=== PATIENT | female | born 1985 | race Caucasian/White ===

== ENCOUNTER 2022-04-04 19:45 | Outpatient (CLI) | payer OTHER ==
[2022-04-05 00:21] LABS: CHLAMYDIA TRACHOMATIS DNA NEGATIVE (NEGATIVE); NEISSERIA GONORRHOEAE DNA NEGATIVE (NEGATIVE); TRICHOMONAS VAGINALIS DNA NEGATIVE (NEGATIVE)
[2022-04-06 10:07] LABS: HCV AB 0.2 s/co ratio (0.0-0.9)
[2022-04-06 11:07] LABS: RPR Non Reactive (Non Reactive)
[2022-04-07 00:07] LABS: HIV SCREEN 4TH GENERATION Non Reactive (Non Reactive)
== END 2022-04-04 19:46 | disposition home or self-care (01) ==
LOC: LAB 19:45
PROVIDERS: ATTEND Internal Medicine
DX: Z11.3 Encounter for screening for infections with a predominantly sexual mode of transmission (principal)
CPT/HCPCS: 86592; 86803; 87389; 87491; 87591; 87661

== ENCOUNTER 2022-08-12 22:43 | Emergency (ER) | payer OTHER ==
[2022-08-12 23:16] LABS: BASOPHILS % (AUTO) 0.3 %; EOSINOPHILS # (AUTO) 0.1 10^3/uL (0.0-0.7); EOSINOPHILS % (AUTO) 1.7 %; HCT - HEMATOCRIT 38.3 % (37.0-47.0); HGB - HEMOGLOBIN 12.4 g/dL (12.0-16.0); LYMPHOCYTES # (AUTO) 2.2 10^3/uL (1.5-3.5); LYMPHOCYTES % (AUTO) 32.1 %; MEAN CORPUSCULAR HEMOGLOBIN 31.1 pg (27.0-31.0); MEAN CORPUSCULAR HGB CONC 32.4 g/dL (32.0-36.0); MEAN PLATELET VOLUME 9.4 fL (7.9-10.8); MONOCYTES # (AUTO) 0.5 10^3/uL (0.0-1.0); MONOCYTES % (AUTO) 6.7 %; NEUTROPHILS # (AUTO) 4.1 10^3/uL (1.5-6.6); NEUTROPHILS % (AUTO) 59.1 %; PLT - PLATELET COUNT 233 10^3/uL (130-450); RED BLOOD COUNT 3.99 10^6/uL (4.20-5.40); RED CELL DISTRIBUTION WIDTH 12.1 % (12.0-15.0); WHITE BLOOD COUNT 6.9 x10^3/uL (4.8-10.8)
[2022-08-12 23:24] LABS: CALCIUM 9.4 mg/dL (8.5-10.3); CREATININE 0.7 mg/dL (0.4-1.0); POTASSIUM 4.5 mmol/L (3.5-5.0)
--- NOTE | 2022-08-12 23:28 | ED Physician Documentation ---
PD HPI LOWER EXT INJURY - Stated complaint Stated Complaint: LT KNEE PAIN - Chief complaint Chief Complaint: Trauma Ext - History obtained from History obtained from: Patient - Additional information Additional information: Patient is a 37-year-old female presenting for evaluation of left lower extremity injury that occurred around 6 PM. 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 He then tried to help catch her from falling And she reports bending her left knee awkwardly as he was trying to catch her from falling.Patient reports having difficulty ambulating on the left leg since the accident. She attempted to go to the walk-in clinic around 630 but they were no longer accepting any patients. She then went home. Due to persistent pain she spoke to a friend of hers who recently completed his EMT certification.He recommended that she come to the emergency department for evaluation after patient reported that the leg felt cooler and numb. Patient denies use of blood thinners. She denies pain elsewhere. Patient reports being 5 weeks postop from liposuction. Review of Systems Constitutional: denies: Fever Cardiac: denies: Chest pain / pressure Respiratory: denies: Dyspnea GI: denies: Abdominal Pain : denies: Dysuria Musculoskeletal: reports: Extremity pain. 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, Other HEENT: Tonsil/Adenoidectomy, Other - Present Medications Home Medications: Ambulatory Orders Medication Instructions Recorded Confirmed Dextroamphetamine/Amphetamine 30 cap PO BID 08/12/22 08/12/22 [Adderall Xr 30 mg Capsule] Oxycodone HCl/Acetaminophen 1 each PO Q6H PRN #10 tablet 08/13/22 [Percocet 5-325 mg Tablet] - Allergies Allergies/Adverse Reactions: Allergies Allergy/AdvReac Type Severity Reaction Status Date / Time Pertussis Vaccines Allergy Anaphylaxis Verified 08/12/22 22:55 Sulfa (Sulfonamide Allergy Rash Verified 08/12/22 22:55 Antibiotics) - Social History Does the pt smoke?: No Smoking Status: Never smoker Does the pt drink ETOH?: Yes - Immunizations Immunizations are current?: Yes - POLST Patient has POLST: No PD ED PE NORMAL - General General: Alert and oriented X 3, No acute distress, Well developed/nourished - HEENT HEENT: Atraumatic - Neck Neck: Supple, no meningeal sign - Cardiac Cardiac: RRR - Respiratory Respiratory: No respiratory distress - Extremities Extremities: No deformity, No edema, No calf tenderness / cord, Other (Palpable popliteal/PT/DP pulses in L leg. Tenderness from femur to foot. Decreased ROM at L knee and L ankle due to pain.). No: Normal ROM s pain (Pain with range of motion of left knee, able to fully extend, Pain with knee flexion) Results - Vitals Vitals: Vital Signs - 24 hr 08/12/22 08/12/22 08/12/22 22:50 23:20 23:37 Temperature 36.8 C Heart Rate 89 81 80 Respiratory 16 14 14 Rate Blood Pressure 124/81 H 109/83 H 118/83 H O2 Saturation 98 97 99 08/13/22 08/13/22 00:49 02:00 Temperature Heart Rate 71 61 Respiratory 16 16 Rate Blood Pressure 109/70 111/67 O2 Saturation 96 96 Oxygen O2 Source Room air - Labs Labs: Laboratory Tests 08/12/22 08/12/22 23:12 23:12 WBC 6.9 RBC 3.99 L Hgb 12.4 Hct 38.3 MCV 96.0 MCH 31.1 H MCHC 32.4 RDW 12.1 Plt Count 233 MPV 9.4 Neut # (Auto) 4.1 Lymph # (Auto) 2.2 Rogers # (Auto) 0.5 Eos # (Auto) 0.1 Baso # (Auto) 0.0 Absolute Nucleated RBC 0.00 Nucleated RBC % 0.0 Sodium 138 Potassium 4.5 Chloride 106 Carbon Dioxide 23 Anion Gap 9.0 BUN 17 Creatinine 0.7 Estimated GFR (MDRD) 95 Glucose 102 H Calcium 9.4 PD Medical Decision Making - ED course Complexity details: reviewed results, re-evaluated patient, d/w patient ED course: Patient presenting for evaluation of left leg injury incurred while doing taekwondo.Patient initially presented with numbness and reported coolness to the leg. I am easily able to palpate femoral, popliteal, DP and PT pulses b/l. Extremities appear well-perfused. Her history does not suggest a tibiofemoral dislocation.Compartments of extremity are soft.Patient reported pain from thigh down to foot so x-rays of entire leg were obtained. I also reviewed these x- rays and see no fracture or dislocation. Patient initially declined any pain medication but at discharge agreed To pain medication.Patient was placed into a knee immobilizer and given crutches. She was instructed on need for close follow-up with her primary care doctor. She is advised on concerning symptoms to return for. Departure - Departure Disposition: 01 Home, Self Care Clinical Impression: Injury of left knee Qualifiers: Encounter type: initial encounter Qualified Code(s): S89.92XA - Unspecified injury of left lower leg, initial encounter Condition: Stable Instructions: ED Knee Pain [facility] Prescriptions: Oxycodone HCl/Acetaminophen [Percocet 5-325 mg Tablet] 1 each PO Q6H PRN #10 tablet PRN Reason: pain Comments: You were evaluated after an injury to your left leg. Your x-rays do not show a broken or out of place bone.We have applied an immobilizer and placed you on crutches. I will also send a small amount of pain medication to [facility] in [place]. I would recommend staying off the affected leg until you are feeling better. Please make sure to have close follow-up with your primary care doctor. I am prescribing a short course of narcotic pain medication for you. These are potentially dangerous and addictive medications that should be used carefully. These medications may constipate you. Take an vjkz-ltk-ztyprad stool softener (docusate) twice daily with plenty of water while taking these medications. If you go 24 hours without a bowel movement, take ivbj-cok-dnzlvvw miralax, per package instructions. Do not drink or drive while taking these medications. If you received narcotic or sedating medications while in the emergency department, do not drive for 24 hours. Store this medication in a safe, secure place and out of reach of children. It is a violation of federal law to give or sell this medication to another person or to use in a manner other than prescribed. The ED will not refill narcotic prescriptions, including prescriptions lost or stolen. To dispose of unwanted medications: 1. [facility] at [address] in [place] has a medication drop box. They accept prescription medications (in pill form) Thursday through Thursday 9:00 a.m. to 5:00 p.m. 2. [facility] accepts prescription medications (in pill form only) for disposal year round. Call for more information. 3. Contact the [facility] for the next [facility] sponsored prescription drug collection event. , [phone], or [phone]; Note that many narcotic pain relievers also contain Tylenol/acetaminophen. Please ensure that your total dose of acetaminophen from all sources does not e xceed 3 g (3000 mg) per day. Forms: Activity restrictions Discharge Date/Time: 08/13/22 02:29
[2022-08-13] MEDS ORDERED: ACETAMINOPHEN 325 MG TABLET PO STA (00:52)
[2022-08-13 02:01] VITALS: BP 111/67
--- NOTE | 2022-08-13 02:09 | XRAY Report ---
PROCEDURE: Ankle 3 View LT INDICATIONS: injury during tae nuha do;pain to whole leg TECHNIQUE: 3 views of the ankle were acquired. COMPARISON: Concurrent study of the lower leg FINDINGS: Bones: Evaluation slightly limited due to positioning. No definite fractures or dislocations. Ankle mortise is normally aligned. No suspicious bony lesions. Soft tissues: No tibiotalar joint effusion. Achilles tendon appears normal. IMPRESSION: 1. Slightly limited study demonstrates no definite fracture or dislocation. Reviewed by: Hayder Vaughn MD on 08/13/2022 2:08 AM PST Approved by: Hayder Vaughn MD on 08/13/2022 2:08 AM PST Station ID: [id number]
--- NOTE | 2022-08-13 02:10 | XRAY Report ---
PROCEDURE: Foot 3 View LT INDICATIONS: injury during tae nuha do;pain to whole leg TECHNIQUE: 3 views of the foot were acquired. COMPARISON: Concurrent study of the left ankle. FINDINGS: Bones: No fractures or dislocations. No suspicious bony lesions. Soft tissues: No tibiotalar joint effusion. Achilles tendon appears normal. IMPRESSION: 1. No fracture or dislocation. Reviewed by: Hayder Vaughn MD on 08/13/2022 2:09 AM [facility] Approved by: Hayder Vaughn MD on 08/13/2022 2:09 AM PST Station ID: [id number]
--- NOTE | 2022-08-13 02:10 | XRAY Report ---
PROCEDURE: Femur 2V LT INDICATIONS: injury during tae nuha do;pain to whole leg TECHNIQUE: 4 views of the femur were acquired. COMPARISON: None. FINDINGS: Bones: No fractures or dislocations. No suspicious bony lesions. Soft tissues: No suspicious soft tissue calcifications or masses. IMPRESSION: 1. No fracture or dislocation. Reviewed by: Hayder Vaughn MD on 08/13/2022 2:08 AM [facility] Approved by: Hayder Vaughn MD on 08/13/2022 2:08 AM [facility] Station ID: [id number]
--- NOTE | 2022-08-13 02:11 | XRAY Report ---
PROCEDURE: Knee 3 View LT INDICATIONS: injury during tae nuha do;pain to whole leg TECHNIQUE: 3 views of the left knee were acquired. COMPARISON: Concurrent studies of the femur and tibia/fibula. FINDINGS: Bones: No fractures or dislocations. No suspicious bony lesions. Soft tissues: No joint effusion. No suspicious soft tissue calcifications. IMPRESSION: 1. No fracture or dislocation. Reviewed by: Hayder Vaughn MD on 08/13/2022 2:10 AM PST Approved by: Hayder Vaughn MD on 08/13/2022 2:10 AM PST Station ID: [id number]
--- NOTE | 2022-08-13 02:12 | XRAY Report ---
PROCEDURE: Tib/Fib LT INDICATIONS: injury during tae nuha do;pain to whole leg TECHNIQUE: 2 views of the tibia and fibula were acquired. COMPARISON: Concurrent studies of the ankle and knee. FINDINGS: Bones: No fractures or dislocations. No suspicious bony lesions. Soft tissues: No suspicious soft tissue calcifications or masses. IMPRESSION: 1. No fracture or dislocation. Reviewed by: Hayder Vaughn MD on 08/13/2022 2:10 AM PST Approved by: Hayder Vaughn MD on 08/13/2022 2:10 AM PST Station ID: [id number]
[2022-08-13] MEDS ORDERED: oxyCODONE/ACET 5/325 Prepack 4 PO STA (02:14)
== END 2022-08-13 02:29 | disposition home or self-care (01) ==
LOC: ED 22:43
DX: S89.92XA Unspecified injury of left lower leg, initial encounter (principal); W50.0XXA Accidental hit or strike by another person, initial encounter; Y93.75 Activity, martial arts; Y92.89 Other specified places as the place of occurrence of the external cause
CPT/HCPCS: 36415; 73552; 73562; 73590; 73610; 73630; 80048; 85025; 99283; 99284; A9270; 87633

== ENCOUNTER 2022-09-01 08:00 | Outpatient (CLI) | payer OTHER ==
[2022-09-01 21:56] LABS: BACTERIAL VAGINOSIS DNA POSITIVE (NEGATIVE); CANDIDA KRUSEI DNA NEGATIVE (NEGATIVE); TRICHOMONAS VAGINALIS DNA NEGATIVE (NEGATIVE)
[2022-09-01 21:57] LABS: CANDIDA GLABRATA DNA NEGATIVE (NEGATIVE); CANDIDA GROUP DNA NEGATIVE (NEGATIVE)
[2022-09-01 22:45] LABS: CHLAMYDIA TRACHOMATIS DNA NEGATIVE (NEGATIVE); NEISSERIA GONORRHOEAE DNA NEGATIVE (NEGATIVE)
== END 2022-09-01 23:59 | disposition home or self-care (01) ==
LOC: LAB 08:00
PROVIDERS: ATTEND Physician Assistant Medical
DX: N76.0 Acute vaginitis (principal); Z11.3 Encounter for screening for infections with a predominantly sexual mode of transmission
CPT/HCPCS: 81514; 87491; 87591; 87661

== ENCOUNTER 2022-09-30 09:46 | Outpatient (CLI) | payer OTHER ==
[2022-09-30 18:19] LABS: BACTERIAL VAGINOSIS DNA NEGATIVE (NEGATIVE); CANDIDA GLABRATA DNA NEGATIVE (NEGATIVE); CANDIDA GROUP DNA POSITIVE (NEGATIVE); CANDIDA KRUSEI DNA NEGATIVE (NEGATIVE); TRICHOMONAS VAGINALIS DNA NEGATIVE (NEGATIVE)
[2022-09-30 20:17] LABS: CHLAMYDIA TRACHOMATIS DNA NEGATIVE (NEGATIVE); NEISSERIA GONORRHOEAE DNA NEGATIVE (NEGATIVE)
[2022-10-01 05:11] LABS: RPR Non Reactive (Non Reactive)
[2022-10-01 07:10] LABS: HCV AB Non Reactive (Non Reactive); HIV SCREEN 4TH GENERATION Non Reactive (Non Reactive)
== END 2022-09-30 09:47 | disposition home or self-care (01) ==
LOC: LAB.S 09:46
PROVIDERS: ATTEND Physician Assistant Medical
DX: N76.0 Acute vaginitis (principal); Z11.3 Encounter for screening for infections with a predominantly sexual mode of transmission
CPT/HCPCS: 36415; 81514; 86592; 86803; 87389; 87491; 87591; 87661

== ENCOUNTER 2022-11-17 13:51 | Emergency (ER) | payer OTHER ==
[2022-11-17 14:57] VITALS: BP 121/80
--- OUTSIDE RECORDS SUMMARY | 2022-11-17 15:16 | EXTERNAL MEDICAL SUMMARY RPT | Continuity of Care Document ---
Author Name Unknown Address [address] [place] [address] Phone Organization [place] Address [address] [place] [address] Phone Care Team Providers Care Cell Technician Name Role Phone Unavailable Unavailable Unavailable Damián Forman, Morgan Unavailable Unavailable Humberto Winters, Zuhair Unavailable Unavailable Nando Winters, Marcella Unavailable Unavailable Ricardo Centeno, Sierra Unavailable Unavailable Nurse, [facility] Unavailable Unavailab le Allergies and Intolerances date description facility type (no date) [facility] (unknown) Medications date description facility 2022-10-01 00:00 fluconazole [facility] 2022-10-01 00:00 fluconazole [facility] 2022-10-01 00:00 fluconazole [facility] 2022-09-16 00:00 ondansetron [facility] 2022-09-16 00:00 ondansetron [facility] 2022-09-16 00:00 ondansetron [facility] 2022-09-16 00:00 ondansetron [facility] 2022-09-16 00:00 ondansetron [facility] 2022-09-16 00:00 ondansetron [facility] 2022-09-16 00:00 ondansetron [facility] 2022-09-16 00:00 ondansetron [facility] 2022-10-01 00:00 fluconazole [facility] 2022-10-01 00:00 fluconazole [facility] 2022-10-01 00:00 fluconazole [facility] 2022-09-02 00:00 clindamycin hcl [facility] 2022-09-02 00:00 clindamycin hcl [facility] 2022-09-02 00:00 clindamycin hcl [facility] 2022-09-02 00:00 clindamycin hcl [facility] 2022-10-01 00:00 fluconazole [facility] 2022-10-01 00:00 fluconazole [facility] 2022-10-01 00:00 fluconazole [facility] 2022-09-02 00:00 clindamycin hcl [facility] 2022-09-02 00:00 clindamycin hcl [facility] 2022-09-02 00:00 clindamycin hcl [facility] 2022-09-02 00:00 clindamycin hcl [facility] 2022-09-02 00:00 clindamycin hcl [facility] 2022-09-02 00:00 clindamycin hcl [facility] 2022-09-02 00:00 clindamycin hcl [facility] 2022-09-02 00:00 clindamycin hcl [facility] 2022-09-16 00:00 promethazine [facility] 2022-09-16 00:00 promethazine [facility] 2022-09-16 00:00 promethazine [facility] 2022-09-16 00:00 promethazine [facility] 2022-10-01 00:00 fluconazole [facility] 2022-10-01 00:00 fluconazole [facility] 2022-10-01 00:00 fluconazole [facility] 2022-09-16 00:00 promethazine [facility] 2022-09-16 00:00 promethazine [facility] 2022-09-16 00:00 promethazine [facility] 2022-09-16 00:00 promethazine [facility] 2022-09-16 00:00 promethazine [facility] 2022-09-16 00:00 promethazine [facility] 2022-09-16 00:00 promethazine [facility] 2022-09-16 00:00 promethazine [facility] 2022-09-16 00:00 ondansetron [facility] 2022-09-16 00:00 ondansetron [facility] 2022-09-16 00:00 ondansetron [facility] 2022-09-16 00:00 ondansetron [facility] 2022-09-01 00:00 dextroamphetamine-amphetamine [facility] 2022-09-01 00:00 dextroamphetamine-amphetamine [facility] 2022-09-02 00:00 dextroamphetamine-amphetamine [facility] 2022-09-02 00:00 dextroamphetamine-amphetamine [facility] 2022-09-03 00:00 dextroamphetamine-amphetamine [facility] 2022-09-16 00:00 dextroamphetamine-amphetamine [facility] 2022-09-17 00:00 dextroamphetamine-amphetamine [facility] 2022-10-01 00:00 dextroamphetamine-amphetamine [facility] 2022-10-02 00:00 dextroamphetamine-amphetamine [facility] 2022-10-02 00:00 dextroamphetamine-amphetamine [facility] 2022-09-01 00:00 dextroamphetamine-amphetamine [facility] 2022-09-01 00:00 dextroamphetamine-amphetamine [facility] 2022-09-02 00:00 dextroamphetamine-amphetamine [facility] 2022-09-02 00:00 dextroamphetamine-amphetamine [facility] 2022-09-03 00:00 dextroamphetamine-amphetamine [facility] 2022-09-16 00:00 dextroamphetamine-amphetamine [facility] 2022-09-17 00:00 dextroamphetamine-amphetamine [facility] 2022-10-01 00:00 dextroamphetamine-amphetamine [facility] 2022-10-02 00:00 dextroamphetamine-amphetamine [facility] 2022-10-02 00:00 dextroamphetamine-amphetamine [facility] 2022-09-02 00:00 clindamycin hcl [facility] 2022-09-02 00:00 clindamycin hcl [facility] 2022-09-02 00:00 clindamycin hcl [facility] 2022-09-02 00:00 clindamycin hcl [facility] 2022-09-16 00:00 ondansetron [facility] 2022-09-16 00:00 ondansetron [facility] 2022-09-16 00:00 ondansetron [facility] 2022-09-16 00:00 ondansetron [facility] 2022-09-01 00:00 dextroamphetamine-amphetamine [facility] 2022-09-01 00:00 dextroamphetamine-amphetamine [facility] 2022-09-02 00:00 dextroamphetamine-amphetamine [facility] 2022-09-02 00:00 dextroamphetamine-amphetamine [facility] 2022-09-03 00:00 dextroamphetamine-amphetamine [facility] 2022-09-16 00:00 dextroamphetamine-amphetamine [facility] 2022-09-17 00:00 dextroamphetamine-amphetamine [facility] 2022-10-01 00:00 dextroamphetamine-amphetamine [facility] 2022-10-02 00:00 dextroamphetamine-amphetamine [facility] 2022-10-02 00:00 dextroamphetamine-amphetamine [facility] 2022-09-01 00:00 dextroamphetamine-amphetamine [facility] 2022-09-01 00:00 dextroamphetamine-amphetamine [facility] 2022-09-02 00:00 dextroamphetamine-amphetamine [facility] 2022-09-02 00:00 dextroamphetamine-amphetamine [facility] 2022-09-03 00:00 dextroamphetamine-amphetamine [facility] 2022-09-16 00:00 dextroamphetamine-amphetamine [facility] 2022-09-17 00:00 dextroamphetamine-amphetamine [facility] 2022-10-01 00:00 dextroamphetamine-amphetamine [facility] 2022-10-02 00:00 dextroamphetamine-amphetamine [facility] 2022-10-02 00:00 dextroamphetamine-amphetamine [facility] 2022-09-16 00:00 promethazine [facility] 2022-09-16 00:00 promethazine [facility] 2022-09-16 00:00 promethazine [facility] 2022-09-16 00:00 promethazine [facility] Problems date description facility 2022-09-01 00:00 Vaginitis and vulvov aginitis, unspecified [facility] 2022-09-01 00:00 Vaginitis and vulvov aginitis, unspecified [facility] 2022-09-01 00:00 Vaginitis and vulvov aginitis, unspecified [facility] 2022-09-01 00:00 Vaginitis and vulvov aginitis, unspecified [facility] 2022-09-01 00:00 Vaginitis and vulvov aginitis, unspecified [facility] 2022-09-01 00:00 Acute vaginitis [facility] 2022-09-01 00:00 Acute vaginitis [facility] 2022-09-01 00:00 Acute vaginitis [facility] 2022-09-01 00:00 Acute vaginitis [facility] 2022-09-01 00:00 Acute vaginitis [facility] 2022-09-16 00:00 Diarrhea [facility] 2022-09-16 00:00 Diarrhea [facility] 2022-09-16 00:00 Diarrhea [facility] 2022-09-16 00:00 Diarrhea [facility] 2022-09-16 00:00 Diarrhea, unspecified [facility] 2022-09-16 00:00 Diarrhea, unspecified [facility] 2022-09-16 00:00 Diarrhea, unspecified [facility] 2022-09-16 00:00 Diarrhea, unspecified [facility] Procedures date description facility 2022-09-01 00:00 Visit Code Hold [facility] 2022-09-01 00:00 Visit Code Hold [facility] 2022-09-01 00:00 Visit Code Hold [facility] 2022-09-01 00:00 Visit Code Hold [facility] 2022-09-01 00:00 Visit Code Hold [facility] 2022-09-16 00:00 Visit Code Hold [facility] 2022-09-16 00:00 Visit Code Hold [facility] 2022-09-16 00:00 Visit Code Hold [facility] 2022-09-16 00:00 Visit Code Hold [facility] Results/Labs test date author facility value unit interpretation Result panel 1 (unknown) (no date) (unknown) [facility] (no value) (units unknown) (unknown) Result panel 2 (unknown) (no date) (unknown) [facility] (no value) (units unknown) (unknown) Result panel 3 (unknown) (no date) (unknown) [facility] (no value) (units unknown) (unknown) Result panel 4 (unknown) (no date) (unknown) [facility] (no value) (units unknown) (unknown) Result panel 5 (unknown) (no date) (unknown) [facility] (no value) (units unknown) (unknown) Result panel 6 (unknown) (no date) (unknown) [facility] (no value) (units unknown) (unknown) Result panel 7 (unknown) (no date) (unknown) [facility] (no value) (units unknown) (unknown) Result panel 8 (unknown) (no date) (unknown) [facility] (no value) (units unknown) (unknown) Result panel 9 (unknown) (no date) (unknown) [facility] (no value) (units unknown) (unknown) Result panel 10 (unknown) (no date) (unknown) [facility] (no value) (units unknown) (unknown) Result panel 11 (unknown) (no date) (unknown) [facility] (no value) (units unknown) (unknown) Result panel 12 (unknown) (no date) (unknown) [facility] (no value) (units unknown) (unknown) Result panel 13 (unknown) (no date) (unknown) [facility] (no value) (units unknown) (unknown) Result panel 14 (unknown) (no date) (unknown) [facility] (no value) (units unknown) (unknown) Result panel 15 (unknown) (no date) (unknown) [facility] (no value) (units unknown) (unknown) Result panel 16 (unknown) (no date) (unknown) [facility] (no value) (units unknown) (unknown) Result panel 17 (unknown) (no date) (unknown) [facility] (no value) (units unknown) (unknown) Result panel 18 (unknown) (no date) (unknown) [facility] (no value) (units unknown) (unknown) Result panel 19 (unknown) (no date) (unknown) [facility] (no value) (units unknown) (unknown) Result panel 20 (unknown) (no date) (unknown) [facility] (no value) (units unknown) (unknown) Result panel 21 (unknown) (no date) (unknown) [facility] (no value) (units unknown) (unknown) Result panel 22 (unknown) (no date) (unknown) [facility] (no value) (units unknown) (unknown) Result panel 23 (unknown) (no date) (unknown) [facility] (no value) (units unknown) (unknown) Result panel 24 (unknown) (no date) (unknown) [facility] (no value) (units unknown) (unknown) Result panel 25 (unknown) (no date) (unknown) [facility] (no value) (units unknown) (unknown) Result panel 26 (unknown) (no date) (unknown) [facility] (no value) (units unknown) (unknown) Result panel 27 (unknown) (no date) (unknown) [facility] (no value) (units unknown) (unknown) Result panel 28 (unknown) (no date) (unknown) [facility] (no value) (units unknown) (unknown) Result panel 29 (unknown) (no date) (unknown) [facility] (no value) (units unknown) (unknown) Result panel 30 (unknown) (no date) (unknown) [facility] (no value) (units unknown) (unknown) Result panel 31 (unknown) (no date) (unknown) [facility] (no value) (units unknown) (unknown) Result panel 32 (unknown) (no date) (unknown) [facility] (no value) (units unknown) (unknown) Result panel 33 (unknown) (no date) (unknown) [facility] (no value) (units unknown) (unknown) Result panel 34 (unknown) (no date) (unknown) [facility] (no value) (units unknown) (unknown) Result panel 35 (unknown) (no date) (unknown) [facility] (no value) (units unknown) (unknown) Result panel 36 (unknown) (no date) (unknown) [facility] (no value) (units unknown) (unknown) Result panel 37 (unknown) (no date) (unknown) [facility] (no value) (units unknown) (unknown) Result panel 38 (unknown) (no date) (unknown) [facility] (no value) (units unknown) (unknown) Result panel 39 (unknown) (no date) (unknown) [facility] (no value) (units unknown) (unknown) Result panel 40 (unknown) (no date) (unknown) [facility] (no value) (units unknown) (unknown) Result panel 41 (unknown) (no date) (unknown) [facility] (no value) (units unknown) (unknown) Result panel 42 (unknown) (no date) (unknown) [facility] (no value) (units unknown) (unknown) Result panel 43 (unknown) (no date) (unknown) [facility] (no value) (units unknown) (unknown) Result panel 44 (unknown) (no date) (unknown) [facility] (no value) (units unknown) (unknown) Result panel 45 (unknown) (no date) (unknown) [facility] (no value) (units unknown) (unknown) Result panel 46 (unknown) (no date) (unknown) [facility] (no value) (units unknown) (unknown) Result panel 47 (unknown) (no date) (unknown) [facility] (no value) (units unknown) (unknown) Result panel 48 (unknown) (no date) (unknown) [facility] (no value) (units unknown) (unknown) Result panel 49 (unknown) (no date) (unknown) [facility] (no value) (units unknown) (unknown) Result panel 50 (unknown) (no date) (unknown) [facility] (no value) (units unknown) (unknown) Result panel 51 (unknown) (no date) (unknown) [facility] (no value) (units unknown) (unknown) Result panel 52 (unknown) (no date) (unknown) [facility] (no value) (units unknown) (unknown) Result panel 53 (unknown) (no date) (unknown) [facility] (no value) (units unknown) (unknown) Result panel 54 (unknown) (no date) (unknown) [facility] (no value) (units unknown) (unknown) Result panel 55 (unknown) (no date) (unknown) [facility] (no value) (units unknown) (unknown) Result panel 56 (unknown) (no date) (unknown) [facility] (no value) (units unknown) (unknown) Result panel 57 (unknown) (no date) (unknown) [facility] (no value) (units unknown) (unknown) Result panel 58 (unknown) (no date) (unknown) [facility] (no value) (units unknown) (unknown) Result panel 59 (unknown) (no date) (unknown) [facility] (no value) (units unknown) (unknown) Result panel 60 (unknown) (no date) (unknown) [facility] (no value) (units unknown) (unknown) Result panel 61 (unknown) (no date) (unknown) [facility] (no value) (units unknown) (unknown) Result panel 62 (unknown) (no date) (unknown) [facility] (no value) (units unknown) (unknown) Result panel 63 (unknown) (no date) (unknown) [facility] (no value) (units unknown) (unknown) Result panel 64 (unknown) (no date) (unknown) [facility] (no value) (units unknown) (unknown) Result panel 65 (unknown) (no date) (unknown) [facility] (no value) (units unknown) (unknown) Social History date description facility 2022-09-01 00:00 Never smoker [facility] 2022-09-01 00:00 Never smoker [facility] 2022-09-01 00:00 Never smoker [facility] 2022-09-01 00:00 Never smoker [facility] 2022-09-01 00:00 Never smoker [facility] 2022-09-16 00:00 Never smoker [facility] 2022-09-16 00:00 Never smoker [facility] 2022-09-16 00:00 Never smoker [facility] 2022-09-16 00:00 Never smoker [facility] Vital Signs date measurement value units 2022-09-01 00:00 BMI 30.22 kg/m2 2022-09-01 00:00 BP_diastolic 70 mmHg 2022-09-01 00:00 BP_systolic 124 mmHg 2022-09-01 00:00 heart_rate 71 /min 2022-09-01 00:00 height_metric 160.02 cm 2022-09-01 00:00 height_standard 63 in 2022-09-01 00:00 respiration_rate 16 /min 2022-09-01 00:00 temperature_metric 36.5 C 2022-09-01 00:00 temperature_standard 97.7 F 2022-09-01 00:00 weight_metric 77.11 kg 2022-09-01 00:00 weight_standard 170 lb 2022-09-16 00:00 BMI 30.22 kg/m2 2022-09-16 00:00 BP_diastolic 63 mmHg 2022-09-16 00:00 BP_systolic 116 mmHg 2022-09-16 00:00 heart_rate 91 /min 2022-09-16 00:00 height_metric 160.02 cm 2022-09-16 00:00 height_standard 63 in 2022-09-16 00:00 respiration_rate 16 /min 2022-09-16 00:00 temperature_metric 37.06 C 2022-09-16 00:00 temperature_standard 98.7 F 2022-09-16 00:00 weight_metric 77.11 kg 2022-09-16 00:00 weight_standard 170 lb
[2022-11-17] MEDS ORDERED: predniSONE 20 MG TABLET PO STA (16:50)
--- NOTE | 2022-11-17 16:56 | ED Physician Documentation ---
PD HPI SKIN - Stated complaint Stated Complaint: ALLERGIC REACTION - Chief complaint Chief Complaint: Allergic Rx - History obtained from History obtained from: Patient - History of Present Illness Timing - onset: How many weeks ago (1) Timing - duration: Weeks (1) Timing - details: Gradual onset Pain level max: 0 Pain level now: 0 Quality / character: Itchy Associated symptoms: No: Fever, Joint pain, Headache, Facial swelling, Dyspnea, Abd pain, N/V/D, Urinary sx Contributing factors: No: Exposed to medication, Exposed to food, Exposed to soap / lotion, Exposed to Poison chuckie/oak, Insect bite /sting, Recent illness - Additional information Additional information: Patient is a 37-year-old female presents to the emergency department with 1 week of diffuse body rash. Nothing seems to make it better or worse. She describes it as itchy and generalized. She states that she is in a polyamorous relationship and it read that syphilis can cause a rash. She has no STD exposure that she is aware of but is requesting to be tested for syphilis. No fevers. No URI symptoms. No new medications, soaps, detergents. No new pets. 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, Other HEENT: Tonsil/Adenoidectomy, Other - Present Medications Home Medications: Ambulatory Orders Medication Instructions Recorded Confirmed Dextroamphetamine/Amphetamine 30 cap PO BID 08/12/22 08/12/22 [Adderall Xr 30 mg Capsule] Oxycodone HCl/Acetaminophen 1 each PO Q6H PRN #10 tablet 08/13/22 [Percocet 5-325 mg Tablet] predniSONE [Deltasone] 10 mg PO [id number] #42 tab 11/17/22 - Allergies Allergies/Adverse Reactions: Allergies Allergy/AdvReac Type Severity Reaction Status Date / Time Pertussis Vaccines Allergy Anaphylaxis Verified 11/17/22 14:49 Sulfa (Sulfonamide Allergy Rash Verified 11/17/22 14:49 Antibiotics) - Social History Does the pt smoke?: No Smoking Status: Never smoker Does the pt drink ETOH?: Yes Does the pt have substance abuse?: No - Immunizations Immunizations are current?: Yes - POLST Patient has POLST: No PD ED PE NORMAL - Vitals Vital signs reviewed: Yes - General General: Alert and oriented X 3, No acute distress - HEENT HEENT: PERRL, Moist mucous membranes - Neck Neck: Supple, no meningeal sign - Cardiac Cardiac: RRR, Strong equal pulses - Respiratory Respiratory: No respiratory distress, Clear bilaterally - Abdomen Abdomen: Soft, Non tender, Non distended - Derm Derm: Warm and dry, Other (Patient with small erythematous papules over the chest, abdomen, back, bilateral arms and bilateral legs. It is not present on the palms or soles. No pustules or vesicles.) - Extremities Extremities: No edema - Neuro Neuro: Alert and oriented X 3 - Psych Psych: Normal mood, Normal affect Results - Vitals Vitals: Oxygen O2 Source Room air - Labs Labs: Laboratory Tests 11/17/22 17:02 Treponema pallidum Ab Non Reactive PD Medical Decision Making - ED course Complexity details: reviewed results, re-evaluated patient, considered differential, d/w patient ED course: Patient with what appears to be a dermatitis, nonspecific. Treponemal testing was performed and is negative. Does not appear consistent with syphilis. We will trial her on prednisone and see if this improves her symptoms. If not, patient will follow-up with her PCP and dermatology. Patient counseled regarding signs and symptoms for which I believe and urgent re-evaluation would be necessary. Patient with good understanding of and agreement to plan and is comfortable going home at this time This document was made in part using voice recognition software. While efforts are made to proofread this document, sound alike and grammatical errors may occur. Departure - Departure Disposition: 01 Home, Self Care Clinical Impression: Dermatitis Condition: Good Instructions: ED Dermatitis Non Specific Rash Follow-Up: CONNIE NAILS [Primary Care Provider] - Within 1 week Prescriptions: predniSONE [Deltasone] 10 mg PO [id number] #42 tab Comments: Follow up with your doctor for further care. Return if you worsen. As we discussed your doctor will need to follow up the syphillis testing. The rash should improve with the steroids. The prescription was sent to [facility] in [place]. Discharge Date/Time: 11/17/22 17:06
== END 2022-11-17 17:06 | disposition home or self-care (01) ==
LOC: ED 13:51
DX: L30.9 Dermatitis, unspecified (principal)
CPT/HCPCS: 36415; 86780; 99283; J7512

== ENCOUNTER 2023-05-29 10:45 | Outpatient (CLI) | payer OTHER | END 2023-05-29 10:46 | disposition home or self-care (01) | LOC: LAB.S 10:45 | PROVIDERS: ATTEND Internal Medicine | DX: Z13.9 Encounter for screening, unspecified (principal) | CPT/HCPCS: 81599; 86480 ==

== ENCOUNTER 2023-06-18 09:34 | Outpatient (CLI) | payer OTHER ==
[2023-06-18 14:49] LABS: BASOPHILS % (AUTO) 0.3 %; EOSINOPHILS # (AUTO) 0.1 10^3/uL (0.0-0.7); HCT - HEMATOCRIT 39.9 % (37.0-47.0); HGB - HEMOGLOBIN 12.7 g/dL (12.0-16.0); LYMPHOCYTES # (AUTO) 2.2 10^3/uL (1.5-3.5); LYMPHOCYTES % (AUTO) 34.9 %; MEAN CORPUSCULAR HEMOGLOBIN 30.5 pg (27.0-31.0); MEAN CORPUSCULAR HGB CONC 31.8 g/dL (32.0-36.0); MEAN CORPUSCULAR VOLUME 95.7 fL (81.0-99.0); MEAN PLATELET VOLUME 9.9 fL (7.9-10.8); MONOCYTES # (AUTO) 0.4 10^3/uL (0.0-1.0); NEUTROPHILS # (AUTO) 3.5 10^3/uL (1.5-6.6); NEUTROPHILS % (AUTO) 56.6 %; PLT - PLATELET COUNT 225 10^3/uL (130-450); RED BLOOD COUNT 4.17 10^6/uL (4.20-5.40); WHITE BLOOD COUNT 6.2 x10^3/uL (4.8-10.8)
[2023-06-18 15:04] LABS: ALBUMIN 4.4 g/dL (3.2-5.5); ALBUMIN/GLOBULIN RATIO 1.8 (1.0-2.2); ALKALINE PHOSPHATASE 55 IU/L (42-121); ALT ALANINE AMINOTRANSFERASE 10 IU/L (10-60); AST ASPARTATE AMINOTRANSFERASE 12 IU/L (10-42); BILIRUBIN,TOTAL 0.5 mg/dL (0.2-1.0); BUN - BLOOD UREA NITROGEN 14 mg/dL (6-20); CALCIUM 9.2 mg/dL (8.5-10.3); CARBON DIOXIDE - CO2 29 mmol/L (21-32); CHLORIDE 105 mmol/L (101-111); CREATININE 0.7 mg/dL (0.6-1.3); CRP - C-REACTIVE PROTEIN < 0.5 mg/dL (<0.5); GFR - MDRD 94 (>89); GLUCOSE 96 mg/dL (74-104); POTASSIUM 4.1 mmol/L (3.5-4.5); SODIUM 138 mmol/L (135-145); TOTAL PROTEIN 6.8 g/dL (6.4-8.9); URIC ACID 2.8 mg/dL (2.3-6.6)
[2023-06-18 15:16] LABS: THYROID STIMULATING HORMONE 1.74 uIU/mL (0.34-5.60)
[2023-06-18 16:13] LABS: RHEUMATOID FACTOR NEGATIVE (Negative)
[2023-06-19 00:19] LABS: CHLAMYDIA TRACHOMATIS DNA NEGATIVE (NEGATIVE); NEISSERIA GONORRHOEAE DNA NEGATIVE (NEGATIVE); TRICHOMONAS VAGINALIS DNA NEGATIVE (NEGATIVE)
[2023-06-19 03:09] LABS: HEPATITIS B CORE IGM AB Negative (Negative); HIV SCREEN 4TH GENERATION Non Reactive (Non Reactive)
[2023-06-19 04:08] LABS: RPR Non Reactive (Non Reactive)
[2023-06-22 14:08] LABS: ANTI-DNA (DS) AB QN 10 IU/mL (0-9); ANTINUCLEAR ANTIBODIES IFA Negative (.); CYCLIC CITRULLINATED PEP IGG/A 7 units (0-19); MEASLES ANTIBODIES IGG >300.0 AU/mL (Immune >16.4)
== END 2023-06-18 09:35 | disposition home or self-care (01) ==
LOC: LAB.S 09:34
PROVIDERS: ATTEND Internal Medicine
DX: R19.7 Diarrhea, unspecified (principal); M35.7 Hypermobility syndrome; Z82.61 Family history of arthritis; Z20.2 Contact with and (suspected) exposure to infections with a predominantly sexual mode of transmission; Z13.9 Encounter for screening, unspecified; F41.9 Anxiety disorder, unspecified; F32.A Depression, unspecified
CPT/HCPCS: 36415; 80053; 81599; 84443; 84550; 85025; 85651; 86038; 86140; 86200; 86225; 86430; 86592; 86705; 86735; 86765; 87389; 87491; 87591; 87661

== ENCOUNTER 2023-11-20 08:05 | Outpatient (CLI) | payer OTHER | END 2023-11-20 08:06 | disposition home or self-care (01) | LOC: DI 08:05 | PROVIDERS: ATTEND Internal Medicine | DX: R01.1 Cardiac murmur, unspecified (principal) | CPT/HCPCS: 93307 ==